=== PATIENT | male | born 1955 | race Caucasian/White ===

== ENCOUNTER 2018-12-02 07:36 | Inpatient (IN) | payer MEDICAID, MEDICARE ==
[2018-12-02] MEDS ORDERED: Lidocaine Viscous Sol 2% 15 ml UD Cup ONE (07:57)
[2018-12-02] MEDS ORDERED: Mag-Al 1200 mg/1200 mg/30 ML UDCUP ONE ×2 (07:57→11:42)
[2018-12-02] MEDS ORDERED: Ondansetron ODT 8 MG TAB ONE (07:57)
[2018-12-02 08:35] LABS: #Eosinphils 0.1 thou/uL (0.0-0.7); #Lymphocytes 1.6 thou/uL (1.20-3.40); #Monocytes 0.5 thou/uL (0.11-0.59); #Neutrophils 7.5 thou/uL (1.40-6.50); %Basophils 0.5 % (0.0-1.0); %Eosinophils 1.1 % (0.0-10.0); %Lymphocytes 16.6 % (21.0-51.0); %Monocytes 4.6 % (0.0-10.0); %Neutrophils 77.2 % (42.0-75.0); Hemoglobin 15.5 g/dL (14.0-18.0); Mean Corpuscular Hemoglobin 31.3 pg (27.0-31.0); Mean Corpuscular Volume 94.9 fL (78.0-98.0); Mean Platelet Volume 7.8 fL (7.4-10.4); Platelet Count 272 thou/uL (130-400); RBC Distribution Width 12.4 % (11.5-14.5); Red Blood Cell (RBC) Count 4.97 mill/uL (4.70-6.10); White Blood Cell (WBC) Count 9.7 thou/uL (4.8-10.8)
[2018-12-02 08:58] LABS: CKMB 8.1 ng/mL (0-6.6)
--- NOTE | 2018-12-02 08:58 | RAD ---
CHEST TWO VIEWS: HISTORY: Pain. COMPARISON: None. FINDINGS: Normal cardiac silhouette. Pulmonary vessels and hilum are normal. Costophrenic angles are clear. No consolidation or mass. No pneumothorax or acute osseous abnormalities. Old left rib fractures. IMPRESSION: No acute cardiopulmonary process. POS: [facility]
[2018-12-02] MEDS ORDERED: Aspirin Chewable 81 MG TAB ONE (09:01)
[2018-12-02] MEDS ORDERED: Nitroglycerin 0.4 MG TAB 1 EACH ONE (09:10)
[2018-12-02] MEDS ORDERED: Ondansetron PF 4 MG/2 ML Vial ONE (09:15)
[2018-12-02] MEDS ORDERED: Heparin 25,000 units/D5W 0 ML ONE (09:17)
[2018-12-02] MEDS ORDERED: Iopamidol 370 76% 100 ML VIAL ONE (09:39)
[2018-12-02] MEDS ORDERED: Heparin 25,000 units/D5W 500 ML ONE (10:04)
[2018-12-02] MEDS ORDERED: Clopidogrel Bisulfate 300 MG TAB ONE ×2 (10:08→11:26)
[2018-12-02 10:12] LABS: Albumin 3.8 g/dL (3.4-4.8)
[2018-12-02] MEDS ORDERED: Aggrastat 12.5 MG/250 ML 250 ML ONE (10:13)
[2018-12-02 10:14] LABS: Chloride 100 mmol/L (98-107); Potassium 3.4 mmol/L (3.5-5.1); Sodium 127 mmol/L (136-145)
[2018-12-02 10:15] LABS: Globulin 2.5 g/dL (2.4-3.5); Glucose 124 mg/dL (80-115); Protein, Total 6.3 g/dL (5.8-8.1)
[2018-12-02 10:16] LABS: Anion Gap 13 mmol/L (10-20); Carbon Dioxide 17 mmol/L (23-31)
[2018-12-02 10:17] LABS: Alkaline Phosphatase 59 U/L (40-150); Bilirubin, Total 0.5 mg/dL (0.2-1.2)
[2018-12-02 10:18] LABS: Calc. Creatinine Clearance 0 mL/min (70-130); Estimated GFR-MDRD Greater than 90
[2018-12-02 10:19] LABS: BUN (Urea Nitrogen) 15 mg/dL (8.4-25.7)
[2018-12-02 10:20] LABS: AST (SGOT) 17 U/L (5-34)
[2018-12-02 10:21] LABS: ALT (SGPT) 10 U/L (8-55); CK (CPK) 194 U/L (30-200)
[2018-12-02] MEDS ORDERED: Nitroglycerin 0.4 MG TAB (25 Tab Bottle) SL PRN (10:23)
[2018-12-02] MEDS ORDERED: Ondansetron PF 4 MG/2 ML Vial IVP PRN (10:26)
[2018-12-02] MEDS ORDERED: Clopidogrel Bisulfate 300 MG TAB PO SCH (10:30)
[2018-12-02] MEDS ORDERED: Aggrastat 12.5 MG/250 ML 250 ML IVPB SCH (10:30)
--- NOTE | 2018-12-02 11:27 | HP ---
CHIEF COMPLAINT: Chest pain. HISTORY OF PRESENT ILLNESS: Mr. Bahena is a pleasant 63-year-old white gentleman, who comes to the hospital for right-sided chest pain. He states that it started at 02:00 a.m., it came and went, he thought it was his GI reflux, which he has had in the past. This was little bit different and worse than it has ever been. He decided to come in as the pain would not go away. He came in about 08:00 a.m. Initial EKG showed ST elevation in the anterior leads with reciprocal changes. They were about 1 mm, but he had ongoing pain. The pain was right-sided. His initial troponin was just mildly elevated. Cardiology was called immediately because of this. Given Mr. Bahena's significant family history with early coronary artery disease in all of his brothers in their 40s and the concerning EKG changes, he was taken to the catheterization lab emergently, where he was found to have an ulcerated plaque in his LAD with thrombus. This occluded septal branch and was most likely the source of his pain. We proceeded and placed a bare-metal stent on his LAD. He did have the same chest pain recurrence on balloon inflations on his LAD confirming that his pain was most likely coming from his acute ND. Currently, he is doing much better. Denies any more chest pain, tightness, or pressure. PAST MEDICAL HISTORY: 1. Polyps in his nose. 2. GERD. PAST SURGICAL HISTORY: Appendectomy. SOCIAL HISTORY: No alcohol. No drugs. Former tobacco user, quit about 10 years ago. OUTPATIENT MEDICATIONS: Flonase. ALLERGIES: NO KNOWN DRUG ALLERGIES. REVIEW OF SYSTEMS: A 12-point review of systems was done and was found to be negative unless stated in the history of present illness. FAMILY HISTORY: Brother had his first ND at age 45, he of an acute ND at age 65. Another brother had his first ND in his mid 40s. Another brother had a bypass in his 60s. PHYSICAL EXAMINATION: VITAL SIGNS: Temperature 97.5, pulse 60, respiratory rate 18, saturating 96% on room air, blood pressure 167/86. GENERAL: Awake, alert, and oriented x3. No distress. HEENT: Normocephalic, atraumatic. NECK: Supple. LUNGS: Clear. CARDIOVASCULAR: S1 and S2. No S3 or S4. No murmurs. ABDOMEN: Soft. Positive bowel sounds. EXTREMITIES: No edema. SKIN: Warm and dry. LABORATORY DATA: Laboratory work was reviewed. CBC with a white count of 9, hemoglobin of 15, hematocrit of 47, platelet count of 272. Chemistry with a sodium of 127, potassium of 3.4, anion gap of 13, BUN of 15, creatinine of 0.81, GFR of 90, CK-MB of 8.1, troponin of 0.225 initially, this is at 08:00 a.m. Chest x-ray was reviewed. No acute issues. ASSESSMENT: Acute anterior ST-elevation myocardial infarction. PLAN: 1. Bare-metal stent was placed to the proximal LAD. 2. IV Zofran for his nausea, which he continues to have. 3. Pain is better controlled. 4. Aspirin, Plavix, statin started today. Aggrastat until he is able to tolerate p.o. as he is too nauseated to take the Plavix at the time. 5. We will start beta kevin and PERLA inhibitor in the next few days once blood pressure and heart rate allows as currently his blood pressure is in the 120s/70s and his heart rate is in the 60s. 6. PPI for stress ulcer prophylaxis. 7. We will do an echocardiogram. 8. Disposition: Home likely in the next 2 to 3 days depending on clinical evolution. Job ID: [id number]
[2018-12-02] MEDS ORDERED: Morphine 2 MG/ML SYRINGE ONE (11:35)
[2018-12-02] MEDS ORDERED: Nitroglycerin 0.4 MG TAB (25 Tab Bottle) ONE (12:17)
[2018-12-02 12:27] LABS: Troponin I 0.821 ng/mL (< 0.028)
[2018-12-02] MEDS ORDERED: Morphine 2 MG/ML SYRINGE SLOW IVP PRN (12:59)
[2018-12-02 13:12] LABS: CKMB 26.6 ng/mL (0-6.6)
[2018-12-02] MEDS: Carvedilol 3.125 MG TAB PO SCH (16:23)
[2018-12-02 17:11] LABS: Troponin I 25.806 ng/mL (< 0.028)
[2018-12-02 17:40] VITALS: BMI 26.5
[2018-12-02] MEDS: Atorvastatin Calcium 40 MG TAB PO SCH (20:18)
[2018-12-03 06:23] LABS: #Eosinphils 0.1 thou/uL (0.0-0.7); #Lymphocytes 1.7 thou/uL (1.20-3.40); #Monocytes 0.7 thou/uL (0.11-0.59); #Neutrophils 6.3 thou/uL (1.40-6.50); %Basophils 0.4 % (0.0-1.0); %Eosinophils 1.5 % (0.0-10.0); %Lymphocytes 19.4 % (21.0-51.0); %Monocytes 8.3 % (0.0-10.0); %Neutrophils 70.5 % (42.0-75.0); Hemoglobin 14.5 g/dL (14.0-18.0); Mean Corpuscular HGB CONC 32.6 g/dL (32.0-36.0); Mean Platelet Volume 8.2 fL (7.4-10.4); Platelet Count 231 thou/uL (130-400); RBC Distribution Width 12.4 % (11.5-14.5); White Blood Cell (WBC) Count 8.9 thou/uL (4.8-10.8)
[2018-12-03 06:48] LABS: ALT (SGPT) 27 U/L (8-55); AST (SGOT) 116 U/L (5-34); Albumin 3.9 g/dL (3.4-4.8); Alkaline Phosphatase 65 U/L (40-150); Anion Gap 13 mmol/L (10-20); BUN (Urea Nitrogen) 8 mg/dL (8.4-25.7); Bilirubin, Total 0.8 mg/dL (0.2-1.2); Calc. Creatinine Clearance 93 mL/min (70-130); Calcium 9.2 mg/dL (7.8-10.44); Carbon Dioxide 23 mmol/L (23-31); Cardiac Risk 3.9 (Less than 4.5); Chloride 104 mmol/L (98-107); Cholesterol 189 mg/dl (< 200 Desired); Estimated GFR-MDRD 89; Globulin 2.8 g/dL (2.4-3.5); Glucose 100 mg/dL (80-115); HDL Cholesterol 49 mg/dL (>60 Neg Risk); LDL Cholesterol, Calculated 124 mg/dL; Potassium 3.9 mmol/L (3.5-5.1); Protein, Total 6.7 g/dL (5.8-8.1); Sodium 136 mmol/L (136-145); Triglycerides 78 mg/dL (Less than 150)
[2018-12-03 07:04] LABS: Free T4 (Free Thyroxine) 1.01 ng/dL (0.70-1.48); Thyroid Stimulating Hormone 0.679 uIU/mL (0.35-4.94)
[2018-12-03] MEDS: Carvedilol 3.125 MG TAB PO SCH ×2 (07:44→16:53)
--- NOTE | 2018-12-03 07:48 | EKG ---
Test Reason : POST STENT-LAD Blood Pressure : / mmHG Vent. Rate : 063 BPM Atrial Rate : 063 BPM P-R Int : 152 ms QRS Dur : 086 ms QT Int : 450 ms P-R-T Axes : 071 036 -02 degrees QTc Int : 460 ms Normal sinus rhythm Marked ST abnormality, possible inferior subendocardial injury Abnormal ECG When compared with ECG of 02-DEC-2018 07:44, (Unconfirmed) T wave inversion less evident in Inferior leads Confirmed by SERINA HERNANDEZ ([id number]) on 12/03/2018 7:47:37 AM Referred By: MARYCRUZ Confirmed By:SERINA HERNANDEZ
--- NOTE | 2018-12-03 07:49 | EKG ---
Test Reason : C/O DISCOMFORT Blood Pressure : / mmHG Vent. Rate : 063 BPM Atrial Rate : 063 BPM P-R Int : 134 ms QRS Dur : 086 ms QT Int : 442 ms P-R-T Axes : 045 045 021 degrees QTc Int : 452 ms Normal sinus rhythm Nonspecific ST abnormality can not R/O inferolateral ischemic change. Abnormal ECG When compared with ECG of 02-DEC-2018 10:57, (Unconfirmed) No significant change was found Confirmed by SERINA HERNANDEZ ([id number]) on 12/03/2018 7:49:31 AM Referred By: MARYCRUZ Confirmed By:SERINA HERNANDEZ
[2018-12-03] MEDS ORDERED: Lisinopril 2.5 MG TAB PO SCH ×2 (09:00→12:00)
[2018-12-03] MEDS ORDERED: Aspirin Chewable 81 MG TAB PO SCH (09:00)
[2018-12-03] MEDS: Clopidogrel Bisulfate 75 MG TAB PO SCH (09:56)
[2018-12-03] MEDS: Aspirin Chewable 81 MG TAB PO SCH (09:58)
--- NOTE | 2018-12-03 11:39 | PDOC.CTH ---
Cardiology Progress Note - Subjective He is doing well. No chest pains no arrhythmias. Walked around with PT. - Objective Vital Signs Temp Pulse BP Pulse Ox 12/03/18 09:56 69 144/90 H 12/03/18 08:00 98 12/03/18 07:00 97.7 F 12/03/18 03:00 98.4 F Weight 168 lb 10.458 oz 12/02/18 12/03/18 12/04/18 06:59 06:59 06:59 Intake Total 550 418 Output Total 1150 380 Balance -600 38 - Physical Examination General/Neuro: alert & oriented x3, NAD Neck: no JVD present Lungs: CTA, unlabored respirations Heart: RRR Abdomen: NT/ND Extremities: other: (no edema) - Telemetry Telemetry Rhythm: NSR - Labs Result Diagrams: 12/03/18 05:22 12/03/18 05:22 Troponin/CKMB CK-MB (CK-2) 26.6 ng/mL (0-6.6) H* 12/02/18 11:25 Troponin I 25.806 ng/mL (< 0.028) H* 12/02/18 16:28 - Assessment/Plan 1. Acute anterior STEMI 2. S/P BMS to LAD 3. GERD 4. Normal LV function. PLAN: - Continue RAJESH with plavix and aspirin for one year ideally. - High dose statins. - BB and ACEI. - Will transfer to floor. - Home tomorrow if stable. - Outpatient cardiac rehab.
[2018-12-03] MEDS: Atorvastatin Calcium 40 MG TAB PO SCH (21:29)
[2018-12-04 05:11] LABS: #Eosinphils 0.3 thou/uL (0.0-0.7); #Lymphocytes 2.1 thou/uL (1.20-3.40); #Monocytes 0.9 thou/uL (0.11-0.59); #Neutrophils 4.5 thou/uL (1.40-6.50); %Basophils 0.6 % (0.0-1.0); %Eosinophils 3.7 % (0.0-10.0); %Lymphocytes 27.2 % (21.0-51.0); %Monocytes 10.8 % (0.0-10.0); %Neutrophils 57.7 % (42.0-75.0); Hemoglobin 14.4 g/dL (14.0-18.0); Mean Corpuscular HGB CONC 33.4 g/dL (32.0-36.0); Mean Corpuscular Hemoglobin 31.8 pg (27.0-31.0); Mean Corpuscular Volume 95.1 fL (78.0-98.0); Mean Platelet Volume 7.9 fL (7.4-10.4); Platelet Count 223 thou/uL (130-400); RBC Distribution Width 12.4 % (11.5-14.5); Red Blood Cell (RBC) Count 4.55 mill/uL (4.70-6.10); White Blood Cell (WBC) Count 7.9 thou/uL (4.8-10.8)
[2018-12-04 05:34] LABS: Anion Gap 10 mmol/L (10-20); BUN (Urea Nitrogen) 9 mg/dL (8.4-25.7); Calc. Creatinine Clearance 95 mL/min (70-130); Calcium 9.1 mg/dL (7.8-10.44); Carbon Dioxide 27 mmol/L (23-31); Chloride 101 mmol/L (98-107); Estimated GFR-MDRD Greater than 90; Glucose 91 mg/dL (80-115); Potassium 3.9 mmol/L (3.5-5.1); Sodium 134 mmol/L (136-145)
--- NOTE | 2018-12-04 07:00 | EKG ---
Test Reason : SITTING UP IN CHAIR Blood Pressure : / mmHG Vent. Rate : 063 BPM Atrial Rate : 063 BPM P-R Int : 142 ms QRS Dur : 084 ms QT Int : 422 ms P-R-T Axes : 071 051 039 degrees QTc Int : 431 ms Normal sinus rhythm ST abnormality, possible digitalis effect vs nonspecific changes. Abnormal ECG When compared with ECG of 02-DEC-2018 12:28, T wave amplitude has increased in Anterior leads Confirmed by SERINA HERNANDEZ ([id number]) on 12/04/2018 7:00:11 AM Referred By: MARYCRUZ Confirmed By:SERINA HERNANDEZ
[2018-12-04] MEDS: Aspirin Chewable 81 MG TAB PO SCH (08:51)
[2018-12-04] MEDS: Clopidogrel Bisulfate 75 MG TAB PO SCH (08:51)
[2018-12-04] MEDS: Carvedilol 3.125 MG TAB PO SCH (08:51)
[2018-12-04] MEDS ORDERED: Lisinopril 2.5 MG TAB PO SCH (09:00)
[2018-12-04 12:06] VITALS: BP 117/75; TEMP 97.7
--- NOTE | 2018-12-04 16:00 | DIS ---
DATE OF ADMISSION: 12/02/2018 DATE OF DISCHARGE: 12/04/2018 DISCHARGING PHYSICIAN: Dr. Adrian Tavares. PRIMARY DIAGNOSIS: Anterior ST-elevation myocardial infarction. HOSPITAL COURSE: Mr. Bahena is a pleasant 63-year-old white gentleman, who comes to the hospital for chest pain. He had right-sided chest pain, ST elevations on his EKG, so he was taken to the catheterization lab for this. He was found to have an ulcerated plaque in his LAD, occluding a septal branch and thrombus formation in the proximal LAD. He had a bare metal stent placed secondary to his request and placed on Plavix. He did well postoperatively. He has not had any arrhythmias, he has not even had a single PVC. His echocardiogram showed normal LV function. He is ready for discharge. Vital signs are stable, he will be discharged home in a stable condition. DISCHARGE MEDICATIONS: Include; 1. Aspirin 81 a day. 2. Plavix 75 mg a day. 3. Coreg 3.125 mg b.i.d. 4. Lisinopril 2.5 mg a day. 5. Atorvastatin 80 mg at bedtime. 6. Sublingual nitro 0.4 mg sublingual p.r.n. chest pain. 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 We will discharge home. Cardiac rehab will be schedule here and eventually back home from his followup with Cardiology. Job ID: [id number]
== END 2018-12-04 18:20 | disposition home or self-care (01) | DRG 249 ==
LOC: ERS 07:36 → CCU 09:26 → CCL 09:26 → SDC 09:26 → CCU 10:23 → 2NO 12-03 22:24
PROVIDERS: ADMIT Internal Medicine Cardiovascular Disease; ATTEND Internal Medicine Cardiovascular Disease
PROC: 02703DZ Dilation of Coronary Artery, One Artery with Intraluminal Device, Percutaneous Approach (ICD-10-PCS; principal; 2018-12-02)
PROC: 4A023N7 Measurement of Cardiac Sampling and Pressure, Left Heart, Percutaneous Approach (ICD-10-PCS; 2018-12-02)
PROC: B2111ZZ Fluoroscopy of Multiple Coronary Arteries using Low Osmolar Contrast (ICD-10-PCS; 2018-12-02)
PROC: B2151ZZ Fluoroscopy of Left Heart using Low Osmolar Contrast (ICD-10-PCS; 2018-12-02)
DX: I21.09 ST elevation (STEMI) myocardial infarction involving other coronary artery of anterior wall (principal); K21.9 Gastro-esophageal reflux disease without esophagitis; Z87.891 Personal history of nicotine dependence; I25.10 Atherosclerotic heart disease of native coronary artery without angina pectoris
CPT/HCPCS: 36415; 71046; 80048; 80053; 80061; 82550; 82553; 83880; 84439; 84443; 84484; 85025; 85347; 92928; 93005; 93010; 93306; 93458; 93798; 96374; C1760; C1769; C1876; J1644; J2270; J2405; J3246; Q9967